=== PATIENT | female | born 1935 | race Caucasian/White ===

== ENCOUNTER 2017-12-18 06:31 | Day surgery (SDC) | payer MEDICARE ==
[~2017-12-18 06:31] MED LIST: Sodium Chloride 0.9% 10 ML Syringe FLUSH PRN
[2017-12-18 08:20] VITALS: BP 150/84
--- NOTE | 2017-12-18 08:22 | OR ---
DATE OF PROCEDURE: 12/18/2017 POSTOPERATIVE CARE: Postoperative care will be provided mainly at the [address] [place] [address] [facility] in conjunction with [facility]. PREOPERATIVE DIAGNOSIS: Cataract, right eye. PREOPERATIVE DIAGNOSIS: Cataract, right eye. PROCEDURE: Cataract extraction, phacoemulsification with intraocular lens placement, right eye. ANESTHESIA: Topical and intracameral. ESTIMATED BLOOD LOSS: Minimal. COMPLICATIONS: None. PATHOLOGY SPECIMENS: None. SURGICAL FINDINGS: None. INDICATION FOR PROCEDURE: The patient is an 82-year-old female with history of a visually significant cataract in the right eye, which interfered with activities of daily living. This consisted of a nuclear sclerosis cataract. Following careful discussion of the risks, benefits and alternatives to cataract extraction with intraocular lens placement including blindness and , the patient elected to proceed, and informed, written consent was obtained prior to the procedure. DESCRIPTION OF THE PROCEDURE: The patient was previously identified, and a whit placed above the right eye. All sources, including the patient, indicated that the right eye was the correct eye. The patient was subsequently taken to the operating room where standard monitors were applied. The patient was then prepped and draped in the usual sterile fashion for ophthalmic surgery. Attention was first directed at the 12 o'clock position where a paracentesis port was fashioned. Shugar solution followed by Viscoat was instilled into the eye. Attention was then directed to the 8:30 position where a triplanar incision was made in a near-clear manner using a keratome. A continuous capsulorrhexis was then made using a combination of the cystotome and Utrata forceps. Hydrodissection was achieved using a balanced salt solution, and the lens rotated nicely. Phacoemulsification was then done using a modified nhdboi-eez-bzzznej technique without complication. Phaco time was 8.42 CDE. The remaining cortex was removed using the irrigation/aspiration handpiece. Provisc was then instilled into the eye. A Technis lens, model [id number], at 17.0 Diopters was then placed in the capsular bag using an [place] injector. The remaining viscoelastic was removed using the irrigation/aspiration forceps. All wounds were then checked and found to be watertight. The lid speculum and drapes were removed. Maxitrol ointment was placed in the patient's right eye, and the eye was shielded. The patient tolerated the procedure well. The patient was instructed to follow up tomorrow. All needle and sponge counts were correct at the end of the procedure. Shikha Schulte MD /[id number]
== END 2017-12-18 08:23 | disposition home or self-care (01) ==
LOC: JP.SDS 06:31
PROVIDERS: ATTEND Ophthalmology
DX: H25.11 Age-related nuclear cataract, right eye (principal)
CPT/HCPCS: C1780; J7050

== ENCOUNTER 2018-01-01 06:28 | Day surgery (SDC) | payer MEDICARE ==
[2018-01-01] MEDS ORDERED: Sodium Chloride 0.9% 10 ML Syringe FLUSH PRN (07:00)
[2018-01-01 08:27] VITALS: BP 162/79
--- NOTE | 2018-01-01 10:26 | OR ---
DATE OF PROCEDURE: 01/01/2018 POSTOPERATIVE CARE: Postoperative care will be provided mainly at the [address] [place] [address] [facility] in conjunction with [facility]. PREOPERATIVE DIAGNOSIS: Cataract, left eye. PREOPERATIVE DIAGNOSIS: Cataract, left eye. PROCEDURE: Cataract extraction, phacoemulsification with intraocular lens placement, left eye. ANESTHESIA: Topical and intracameral. ESTIMATED BLOOD LOSS: Minimal. COMPLICATIONS: None. PATHOLOGY SPECIMENS: None. SURGICAL FINDINGS: None. INDICATION FOR PROCEDURE: The patient is an 82-year-old female with history of a visually significant cataract in the left eye, which interfered with activities of daily living. This consisted of a nuclear sclerosis cataract. Following careful discussion of the risks, benefits and alternatives to cataract extraction with intraocular lens placement including blindness and , the patient elected to proceed, and informed, written consent was obtained prior to the procedure. DESCRIPTION OF THE PROCEDURE: The patient was previously identified, and a whit placed above the left eye. All sources, including the patient, indicated that the left eye was the correct eye. The patient was subsequently taken to the operating room where standard monitors were applied. The patient was then prepped and draped in the usual sterile fashion for ophthalmic surgery. Attention was first directed at the 12 o'clock position where a paracentesis port was fashioned. Shugar solution followed by Viscoat was instilled into the eye. Attention was then directed to the 8:30 position where a triplanar incision was made in a near-clear manner using a keratome. A continuous capsulorrhexis was then made using a combination of the cystotome and Utrata forceps. Hydrodissection was achieved using a balanced salt solution, and the lens rotated nicely. Phacoemulsification was then done using a modified [id number]-[id number] technique without complication. Phaco time was 7.22 CDE. The remaining cortex was removed using the irrigation/aspiration handpiece. Provisc was then instilled into the eye. A Technis lens, model [id number], at 17.5 diopters was then placed in the capsular bag using an [place] injector. The remaining viscoelastic was removed using the irrigation/aspiration forceps. All wounds were then checked and found to be watertight. The lid speculum and drapes were removed. Maxitrol ointment was placed in the patient's left eye, and the eye was shielded. The patient tolerated the procedure well. The patient was instructed to follow up tomorrow. All needle and sponge counts were correct at the end of the procedure. Shikha Schulte MD /[id number]
== END 2018-01-01 08:27 | disposition home or self-care (01) ==
LOC: JP.SDS 06:28
PROVIDERS: ATTEND Ophthalmology
DX: H25.12 Age-related nuclear cataract, left eye (principal); E11.9 Type 2 diabetes mellitus without complications; E03.9 Hypothyroidism, unspecified; K21.9 Gastro-esophageal reflux disease without esophagitis; Z88.1 Allergy status to other antibiotic agents; Z88.8 Allergy status to other drugs, medicaments and biological substances; Z91.012 Allergy to eggs; Z91.048 Other nonmedicinal substance allergy status
CPT/HCPCS: 66984; J7050; V2632

== ENCOUNTER 2019-01-15 08:37 | Day surgery (SDC) | payer MEDICARE ==
[2019-01-15] MEDS ORDERED: Lactated Ringers 1,000 ML IV SCH (09:15)
[2019-01-15] MEDS ORDERED: fentaNYL 100 MCG/2 ML SDV ONE (10:20)
[2019-01-15] MEDS ORDERED: Propofol 200 MG/20 ML SDV ONE (10:20)
[2019-01-15 12:05] VITALS: BP 126/79
--- NOTE | 2019-01-19 08:06 | OR ---
DATE OF PROCEDURE: 01/15/2019 PREOPERATIVE DIAGNOSES: History of colon polyps, positive Cologuard. POSTOPERATIVE DIAGNOSES: Diverticulosis, history of colon polyps, positive Cologuard, etiology unknown. PROCEDURE: Colonoscopy to the cecum. SURGEON: Misael Blancas MD ANESTHESIA: IV anesthesia with monitored anesthesia care. INDICATION: This 83-year-old white female is referred for a colonoscopy because of a history of precancerous colon polyps. Additionally, she recently had a Cologuard study, which was positive. She says her last colonoscopic exam was done 3 years ago. I counseled her for the procedure, including risks and alternatives, and she gave her informed consent to proceed. DESCRIPTION OF PROCEDURE: The patient was placed in the left lateral decubitus position. IV anesthesia was administered by the Anesthesia Service. Time-out was held. A rectal exam was performed, which was unremarkable. The flexible video Olympus colonoscope was introduced through her anus, up her rectum and out her colon all the way to the cecum. Once the cecum was reached, the scope was slowly withdrawn, examining the mucosa throughout. No mucosal abnormalities were noted until we reached the left colon. Here and in the sigmoid colon, we saw multiple diverticula. There was no bleeding or inflammation associated with any of them. The scope was retroflexed in the rectum with the distal rectum appearing unremarkable. The scope was straightened and removed. She tolerated the procedure well. Misael Blancas MD /[id number] MTDD
== END 2019-01-15 12:30 | disposition home or self-care (01) ==
LOC: JP.SDS 08:37
PROVIDERS: ATTEND Surgery
DX: K57.30 Diverticulosis of large intestine without perforation or abscess without bleeding (principal); R19.5 Other fecal abnormalities; Z86.010 Personal history of colon polyps; J44.9 Chronic obstructive pulmonary disease, unspecified; I10 Essential (primary) hypertension; K27.9 Peptic ulcer, site unspecified, unspecified as acute or chronic, without hemorrhage or perforation; E11.9 Type 2 diabetes mellitus without complications; E03.9 Hypothyroidism, unspecified; M81.0 Age-related osteoporosis without current pathological fracture; Z88.8 Allergy status to other drugs, medicaments and biological substances; Z91.012 Allergy to eggs; Z88.1 Allergy status to other antibiotic agents; Z91.048 Other nonmedicinal substance allergy status; Z79.82 Long term (current) use of aspirin; Z79.52 Long term (current) use of systemic steroids; Z79.899 Other long term (current) drug therapy
CPT/HCPCS: G0121; J2704; J3010; J7120

== ENCOUNTER 2021-11-15 09:07 | Emergency (ER) | payer MEDICARE ==
[2021-11-15 09:51] VITALS: BP 130/67; PULSE 73
== END 2021-11-15 11:06 | disposition home or self-care (01) ==
LOC: JP.ED 09:07
DX: R07.89 Other chest pain (principal); J44.9 Chronic obstructive pulmonary disease, unspecified; I10 Essential (primary) hypertension; E11.9 Type 2 diabetes mellitus without complications; E03.9 Hypothyroidism, unspecified; Z88.1 Allergy status to other antibiotic agents; Z91.012 Allergy to eggs; Z91.048 Other nonmedicinal substance allergy status; Z91.041 Radiographic dye allergy status; Z79.82 Long term (current) use of aspirin; Z79.899 Other long term (current) drug therapy
CPT/HCPCS: 36415; 84484; 99284

== ENCOUNTER 2022-01-23 02:15 | Emergency (ER) | payer MEDICARE ==
[2022-01-23] MEDS: Sodium Chloride 0.9% 10 ML Syringe FLUSH PRN (02:41)
[2022-01-23] MEDS ORDERED: Propofol 200 MG/20 ML SDV ONE (03:34)
[2022-01-23] MEDS: Sodium Chloride 0.9% 500 ML IV ONE (03:39)
[2022-01-23 03:45] VITALS: PULSE 67
[2022-01-23 03:48] VITALS: BP 135/68
== END 2022-01-23 04:39 | disposition home or self-care (01) ==
LOC: JP.ED 02:15
DX: R07.89 Other chest pain (principal); I48.91 Unspecified atrial fibrillation; I10 Essential (primary) hypertension; J44.9 Chronic obstructive pulmonary disease, unspecified; E11.42 Type 2 diabetes mellitus with diabetic polyneuropathy; E87.5 Hyperkalemia; M19.90 Unspecified osteoarthritis, unspecified site; Z91.012 Allergy to eggs; Z91.048 Other nonmedicinal substance allergy status; Z88.1 Allergy status to other antibiotic agents; Z91.041 Radiographic dye allergy status; Z79.82 Long term (current) use of aspirin; Z79.899 Other long term (current) drug therapy
CPT/HCPCS: 36415; 80048; 83880; 84443; 84484; 85025; 92960; 93005; 96360; 99285; J2704; J3490; J7040

== ENCOUNTER 2022-03-13 00:46 | Emergency (ER) | payer MEDICARE ==
[2022-03-13] MEDS ORDERED: Propofol 200 MG/20 ML SDV IVPUSH ONE (00:50)
[2022-03-13 02:27] VITALS: BP 178/75; PULSE 59
== END 2022-03-13 02:34 | disposition home or self-care (01) ==
LOC: JP.ED 00:46
DX: I48.91 Unspecified atrial fibrillation (principal); J44.9 Chronic obstructive pulmonary disease, unspecified; E03.9 Hypothyroidism, unspecified; I10 Essential (primary) hypertension; E11.9 Type 2 diabetes mellitus without complications; Z88.1 Allergy status to other antibiotic agents; Z88.8 Allergy status to other drugs, medicaments and biological substances; Z91.012 Allergy to eggs; Z91.048 Other nonmedicinal substance allergy status; Z79.899 Other long term (current) drug therapy; Z79.82 Long term (current) use of aspirin; Z90.49 Acquired absence of other specified parts of digestive tract
CPT/HCPCS: 92960; 93005; 99284; J2704; 93010

== ENCOUNTER 2022-04-16 02:26 | Emergency (ER) | payer MEDICARE ==
[2022-04-16] MEDS ORDERED: Diltiazem 25 MG/5 ML SDV IVPUSH ONE (02:40)
[2022-04-16] MEDS ORDERED: Sodium Chloride 0.9% 10 ML Syringe FLUSH PRN (02:40)
[2022-04-16 02:46] VITALS: BP 174/104; PULSE 106
[2022-04-16 03:09] LABS: ESTIMATED GFR 72 mL/min (>60); TROPONIN I HIGH SENSITIVITY 10.3 pg/mL (<=60.3)
[2022-04-16] MEDS ORDERED: Sodium Chloride 0.9% 1,000 ML IV SCH (03:30)
[2022-04-16] MEDS ORDERED: Propofol 200 MG/20 ML SDV ONE (04:13)
== END 2022-04-16 05:20 | disposition home or self-care (01) ==
LOC: JP.ED 02:26
DX: I48.91 Unspecified atrial fibrillation (principal); J44.9 Chronic obstructive pulmonary disease, unspecified; I10 Essential (primary) hypertension; E11.9 Type 2 diabetes mellitus without complications; E03.9 Hypothyroidism, unspecified; M19.90 Unspecified osteoarthritis, unspecified site; Z91.012 Allergy to eggs; Z88.1 Allergy status to other antibiotic agents; Z88.5 Allergy status to narcotic agent; Z79.82 Long term (current) use of aspirin; Z79.899 Other long term (current) drug therapy
CPT/HCPCS: 36415; 80053; 83735; 84100; 84484; 85025; 93005; 96361; 96374; 99285; J2704; J3490; J7030

== ENCOUNTER 2024-08-10 12:24 | Emergency (ER) | payer MEDICARE ==
[2024-08-10 14:47] VITALS: BP 181/72; PULSE 59
== END 2024-08-10 15:50 | disposition home or self-care (01) ==
LOC: JP.ED 12:24
DX: K59.04 Chronic idiopathic constipation (principal); I10 Essential (primary) hypertension; J44.9 Chronic obstructive pulmonary disease, unspecified; E11.9 Type 2 diabetes mellitus without complications; E03.9 Hypothyroidism, unspecified; Z88.1 Allergy status to other antibiotic agents; Z91.012 Allergy to eggs; Z91.041 Radiographic dye allergy status; Z91.048 Other nonmedicinal substance allergy status; Z88.8 Allergy status to other drugs, medicaments and biological substances; Z79.890 Hormone replacement therapy; Z79.899 Other long term (current) drug therapy; Z90.49 Acquired absence of other specified parts of digestive tract
CPT/HCPCS: 74018; 74018-26; 99284

== ENCOUNTER 2024-11-17 09:46 | Emergency (ER) | payer MEDICARE ==
[2024-11-17 10:53] LABS: BASOPHILS ABSOLUTE AUTO 0.03 K/uL (0.00-0.10); BASOPHILS PERCENT AUTO 0.7 % (0.1-1.3); EOSINOPHILS ABSOLUTE AUTO 0.05 K/uL (0.00-0.40); EOSINOPHILS PERCENT AUTO 1.2 % (0.0-5.4); HEMATOCRIT 32.4 % (34.3-46.0); HEMOGLOBIN 9.9 g/dL (11.2-15.5); IMMATURE GRAN PERCENT AUTO 0.5 % (0.0-0.7); LYMPHOCYTES ABSOLUTE AUTO 0.72 K/uL (0.8-3.3); LYMPHOCYTES PERCENT AUTO 17.3 % (11.4-47.7); MEAN CORPUSCULAR HEMOGLOBIN 23.7 pg (31.6-35.5); MEAN CORPUSCULAR HGB CONC 30.6 g/dL (31.6-35.5); MEAN CORPUSCULAR VOLUME 77.5 fL (81.4-99.0); MONOCYTES ABSOLUTE AUTO 0.46 K/uL (0.20-0.90); MONOCYTES PERCENT AUTO 11.1 % (3.3-12.6); NEUTROPHILS ABSOLUTE AUTO 2.87 K/uL (1.0-7.6); NEUTROPHILS PERCENT AUTO 69.2 % (40.0-78.1); PLATELET COUNT,PLT 219 K/uL (130-375); RED BLOOD CELL COUNT 4.18 M/uL (3.77-5.24); WHITE BLOOD CELL COUNT,WBC 4.2 K/uL (3.2-11.0)
[2024-11-17 10:57] LABS: IMMATURE GRAN ABSOLUTE AUTO 0.02 K/uL (0.00-0.23)
[2024-11-17 11:16] LABS: A/G RATIO 0.8 (1.2-2.2); ALANINE AMINOTRANSFERASE,ALT 19 U/L (12-78); ALBUMIN 3.1 g/dL (3.4-5.0); ALKALINE PHOSPHATASE 96 U/L (46-116); ASPARTATE AMNIOTRANSFERASE,AST 25 U/L (15-37); BILIRUBIN TOTAL 0.5 mg/dL (0.2-1.0); BLOOD UREA NITROGEN,BUN 22 mg/dL (7-18); CALCIUM 8.5 mg/dL (8.5-10.1); CARBON DIOXIDE,CO2 28 mmol/L (21-32); CHLORIDE,CL 100 mmol/L (100-108); CREATININE 0.9 mg/dL (0.6-1.0); EST CRCL DRUG DOSING (CG) 31.04 mL/min; ESTIMATED GFR 61 mL/min (>60); GLUCOSE RANDOM 129 mg/dL (74-106); POTASSIUM,K 3.7 mmol/L (3.6-5.2); PROTEIN TOTAL,TP 7.2 g/dL (6.4-8.2); SODIUM,NA 137 mmol/L (140-148)
[2024-11-17 11:27] LABS: ANION GAP 12.7 mmol/L (5.0-14.0)
[2024-11-17 11:59] VITALS: BP 164/56; PULSE 53
== END 2024-11-17 12:24 | disposition home or self-care (01) ==
LOC: JP.ED 09:46
DX: R19.7 Diarrhea, unspecified (principal); I10 Essential (primary) hypertension; E11.9 Type 2 diabetes mellitus without complications; E03.9 Hypothyroidism, unspecified; I48.91 Unspecified atrial fibrillation; Z90.49 Acquired absence of other specified parts of digestive tract; Z91.041 Radiographic dye allergy status; Z88.8 Allergy status to other drugs, medicaments and biological substances; Z91.012 Allergy to eggs; Z79.899 Other long term (current) drug therapy; Z87.891 Personal history of nicotine dependence; Z79.890 Hormone replacement therapy; Z79.51 Long term (current) use of inhaled steroids; Z79.01 Long term (current) use of anticoagulants
CPT/HCPCS: 36415; 74018; 74018-26; 80053; 83605; 85025; 99283; 99284